=== PATIENT | female | born 1970 | race Caucasian/White ===

== ENCOUNTER 2022-03-23 13:48 | Emergency (ER) | payer OTHER ==
[2022-03-23] MEDS ORDERED: MEDROL 4MG DOSEP4 MG PO (17:05)
[2022-03-23] MEDS ORDERED: CYCLOBENZAPRINE10 MG PO (17:05)
== END 2022-03-23 17:36 | disposition home or self-care (01) ==
LOC: FER 13:48
DX: S86.912A Strain of unspecified muscle(s) and tendon(s) at lower leg level, left leg, initial encounter (principal); E11.9 Type 2 diabetes mellitus without complications; I10 Essential (primary) hypertension; Z28.310 Unvaccinated for COVID-19; Z79.82 Long term (current) use of aspirin; Z79.84 Long term (current) use of oral hypoglycemic drugs; Z79.899 Other long term (current) drug therapy; V49.40XA Driver injured in collision with unspecified motor vehicles in traffic accident, initial encounter
CPT/HCPCS: 71045; 73080; 73610; 73630